=== PATIENT | male | born 1955 | race Caucasian/White ===

== ENCOUNTER 2019-04-15 08:33 | Inpatient (IN) | payer MEDICARE, BC ==
--- NOTE | 2019-04-14 18:30 | Pre-op HX & Phy Repo 2 SIG ---
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 The patient had a 15-year history of ulcerative colitis and underwent surgery in [place] in January 2007 including total colectomy and creation of an ileoanal J pouch. After multiple revisions and dilatations, he underwent surgery for failed J-pouch in June 2008. This included abdominal-perineal proctectomy and conversion of his failed J-pouch to a Hargrove continent ileostomy. The J-pouch itself was utilized and converted into the Hargrove pouch. In September 2008, he required revision for a slipped valve. In February 2009, he underwent resection of his Hargrove pouch because of continued difficulties with intubation and emptying the pouch. The original J-pouch that had been converted to the Hargrove pouch was excised and a new Hargrove continent intestinal reservoir created transposing into the terminal ileum. Since that time, he has done well except for some difficulty with intubating after 03/01/2009 surgery. On 01/24/2010, he underwent laparotomy with reconstruction of the Hargrove pouch valve and revision of the stoma in depth. 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 He has low iron levels and has taken iron supplements. He is scheduled to undergo pouch endoscopy and preparation for surgery for stoma revision. PHYSICAL EXAMINATION: [place] and will be examined upon arrival and dictated separately. IMPRESSION: Stenosis and stricture of Hargrove continent ileostomy stoma. History of ulcerative colitis. STATUS POST MULTIPLE ABDOMINAL OPERATIONS: A) Total colectomy and ileoanal J-pouch with loop ileostomy, January 2007. B) Closure of loop ileostomy, April 2007. C) Multiple dilatations and self-catheterizations per anus 2006 through 2007. D) Revision of the ileoanal anastomosis April 2008 (all the above operations were performed in [place]). E) Conversion of failed ileoanal J-pouch to Hargrove continent ileostomy and abdominal-perineal proctectomy, June 2008. F) Laparotomy with revision of Hargrove pouch slipped valve in September 2008. G) Resection of failed continent ileostomy converted from failed J-pouch with creation of a new Hargrove continent intestinal reservoir in February 2009. H) Laparotomy with reconstruction of Hargrove pouch nipple valve and revision of stoma in depth, 01/24/2010. PLAN: The patient will be admitted and undergo pouch endoscopy not requiring anesthesia or sedation. He will receive a bowel prep with intravenous hydration and have a catheter placed to his Hargrove pouch to continuous gravity drainage. He will then undergo revision of the stoma. I have had a full discussion with the patient, which I will have in person again when he arrives about indications, alternatives, options and risks including bleeding, infection, continued problems with the stoma and so forth. Mehul Roberts M.D. DR: ENID JOB#: [id number] CC:
[~2019-04-15] VITALS: Ht 193 cm; Wt 88.5 kg
--- NOTE | 2019-04-15 11:47 | NUR ---
NURSE NOTES: Patient arrived to 304-1, direct admit of Dr. Roberts, ambulated from [facility]. Alert oriented x4, calm. No distress on RA. No pain, no NV. Oriented patient to room and call light for safety. Home medications reviewed and sent to pharmacy. LLQ dressing CDI. Clear liquid diet as ordered. Will start peripheral line as ordered. Bed in lowest position, will continue to monitor.
[2019-04-15 12:00] VITALS: BP 163/94
[2019-04-15 12:37] LABS: ANION GAP 8 mmol/L (5-15); BLOOD UREA NITROGEN 17 mg/dL (7-18); CALCIUM 9.2 MG/DL (8.5-10.1); CARBON DIOXIDE 25 MMOL/L (21-32); CHLORIDE 107 MMOL/L (98-107); CREATININE 1.2 MG/DL (0.55-1.30); SODIUM 140 MMOL/L (136-145)
[2019-04-15 12:46] LABS: BASOPHILS % (AUTO) 1.9 % (0.0-2.0); EOSINOPHILS % (AUTO) 1.1 % (0.0-3.0); HEMATOCRIT 47.8 % (42.0-52.0); HEMOGLOBIN 15.9 G/DL (14.2-18.0); INR 0.9 (0.9-1.1); LYMPHOCYTES % (AUTO) 21.4 % (20.0-45.0); MEAN CORPUSCULAR VOLUME 91 FL (80-99); MONOCYTES % (AUTO) 6.7 % (1.0-10.0); NEUTROPHILS % (AUTO) 68.9 % (45.0-75.0); PLATELET COUNT 267 K/UL (150-450); RED BLOOD COUNT 5.27 M/UL (4.70-6.10); WHITE BLOOD COUNT 5.6 K/UL (4.8-10.8)
[2019-04-15 12:51] LABS: ALANINE AMINOTRANSFERASE 10 U/L (12-78); ALBUMIN 3.8 G/DL (3.4-5.0); ALBUMIN/GLOBULIN RATIO 1.1 (1.0-2.7); ALKALINE PHOSPHATASE 88 U/L (46-116); ASPARTATE AMINO TRANSFERASE 18 U/L (15-37); BILIRUBIN,TOTAL 0.4 MG/DL (0.2-1.0); FERRITIN 16 NG/ML (8-388)
[2019-04-15] MEDS ORDERED: RANITIDINE HCL150 MG ORAL (12:57)
[2019-04-15] MEDS ORDERED: IMODIUM MULTI-1 EACH PO (12:57)
[2019-04-15] MEDS ORDERED: VSL#3 CAPSULE1 EACH PO (12:57)
[2019-04-15] MEDS ORDERED: GAS-X125 MG PO (12:57)
--- NOTE | 2019-04-15 13:03 | Pre-Procedure Note/Attestation ---
Pre-Procedure Note/Attestation Complete Prior to Procedure Planned Procedure: not applicable Procedure Narrative: Hargrove continent ileostomy pouch endoscopy Indications for Procedure Pre-Operative Diagnosis: Hargrove continent ileostomy stoma stenosis Attestation I attest that I discussed the nature of the procedure; its benefits; risks and complications; and alternatives (and the risks and benefits of such alternatives ), prior to the procedure, with the patient (or the patient's legal field support representative). I attest that, if there was a reasonable possibility of needing a blood transfusion, the patient (or the patient's legal field support representative) was given the [facility] standardized written summary, pursuant to the [place] Blood Safety Act ([place] Health and Safety Code # 1645, as amended). I attest that I re-evaluated the patient just prior to the surgery and that there has been no change in the patient's H&P, except as documented below:none Mehul Roberts MD Apr 15, 2019 13:03
[2019-04-15 13:05] LABS: % IRON SATURATION 11 % (15-50); IRON 38 ug/dL (50-175); TOTAL IRON BINDING CAPACITY 348 ug/dL (250-450)
--- NOTE | 2019-04-15 13:23 | Brief Operative Note ---
Immediate Post Operative Note Operative Note Pre-op Diagnosis: Hargrove continent ileostomy stoma stenosis Procedure: Hargrove pouch endoscopy Post-op Diagnosis: Hargrove pouch stoma stenosis Post-op Diagnosis: same as pre-op Findings: consistent w/pre-op dx studies Surgeon: tanmay Anesthesia: other - none Specimen: none Complications: none Condition: stable Fluids: none Estimated Blood Loss: none Drains: other - 28 Cruz to Hargrove pouch Packing: Fol Implant(s) used?: No Mehul Roberts MD Apr 15, 2019 13:23
[2019-04-15] MEDS ORDERED: Vitamin B12 1000mcg/ml Inj IM ONE (13:30)
--- NOTE | 2019-04-15 13:30 | NUR ---
NURSE NOTES: Patient returned from Endoscopy, via gurney in stable condition, alert, oriented x4 calm. Denies pain. LLQ abdominal dressing CDI, dark green output noted to drainage bag. Will continue to monitor.
--- NOTE | 2019-04-15 14:22 | Anethesia Preoperative Eval ---
Anesthesia Pre-op PMH/ROS General Date of Evaluation: Apr 15, 2019 Time of Evaluation: 16:29 Anesthesiologist: Brianne ASA Score: ASA 2 Mallampati Score Class I : Soft palate, uvula, fauces, pillars visible Class II: Soft palate, uvula, fauces visible Class III: Soft palate, base of uvula visible Class IV: Only hard plate visible Mallampati Classification: Class II Surgeon: Armando Diagnosis: Malfunctioning Hargrove Pouch Stoma Surgical Procedure: Revision of Hargrove Pouch Stoma Anesthesia History: none Family History: no anesthesia problems Allergies: Coded Allergies: No Known Allergies (Verified Allergy, Mild, 06/23/08) Medications: see eMAR Patient NPO?: Yes Past Medical History Cardiovascular: Reports: HTN Hematology/Immune: Reports: DVT PSxH Narrative: A) Total colectomy and ileoanal J-pouch with loop ileostomy, January 2007. B) Closure of loop ileostomy, April 2007. C) Multiple dilatations and self-catheterizations per anus 2006 through 2007. D) Revision of the ileoanal anastomosis April 2008 (all the above operations were performed in [place]). E) Conversion of failed ileoanal J-pouch to Hargrove continent ileostomy and abdominal-perineal proctectomy, June 2008. F) Laparotomy with revision of Hargrove pouch slipped valve in September 2008. G) Resection of failed continent ileostomy converted from failed J-pouch with creation of a new Hargrove continent intestinal reservoir in February 2009. H) Laparotomy with reconstruction of Hargrove pouch nipple valve and revision of stoma in depth, 01/24/2010. Anesthesia Pre-op Phys. Exam Physician Exam Last Vital Signs Date Time Temp Pulse Resp B/P (MAP) Pulse Ox O2 Delivery O2 Flow Rate FiO2 04/15/19 12:00 97.9 70 17 163/94 (117) 97 Constitutional: NAD Neurologic: CN 2-12 intact Cardiovascular: RRR Respiratory: CTA Gastrointestinal: S/NT/ND Airway Exam Mallampati Score: Class II MO: full ROM: full Teeth: missing, intact Anesthesia Pre-op A/P Labs Hematology Test 04/15/19 12:15 White Blood Count 5.6 K/UL (4.8-10.8) Red Blood Count 5.27 M/UL (4.70-6.10) Hemoglobin 15.9 G/DL (14.2-18.0) Hematocrit 47.8 % (42.0-52.0) Mean Corpuscular Volume 91 FL (80-99) Mean Corpuscular Hemoglobin 30.1 PG (27.0-31.0) Mean Corpuscular Hemoglobin Concent 33.1 G/DL (32.0-36.0) Red Cell Distribution Width 14.0 % (11.6-14.8) Platelet Count 267 K/UL (150-450) Mean Platelet Volume 6.3 FL (6.5-10.1) L Neutrophils (%) (Auto) 68.9 % (45.0-75.0) Lymphocytes (%) (Auto) 21.4 % (20.0-45.0) Monocytes (%) (Auto) 6.7 % (1.0-10.0) Eosinophils (%) (Auto) 1.1 % (0.0-3.0) Basophils (%) (Auto) 1.9 % (0.0-2.0) Coagulation Test 04/15/19 12:15 Prothrombin Time 10.0 SEC (9.30-11.50) Prothromb Time International Ratio 0.9 (0.9-1.1) Activated Partial Thromboplast Time 30 SEC (23-33) Chemistry Test 04/15/19 12:15 Sodium Level 140 MMOL/L (136-145) Potassium Level 4.0 MMOL/L (3.5-5.1) Chloride Level 107 MMOL/L (98-107) Carbon Dioxide Level 25 MMOL/L (21-32) Anion Gap 8 mmol/L (5-15) Blood Urea Nitrogen 17 mg/dL (7-18) Creatinine 1.2 MG/DL (0.55-1.30) Estimat Glomerular Filtration Rate > 60 mL/min (>60) Glucose Level 108 MG/DL (74-106) H Calcium Level 9.2 MG/DL (8.5-10.1) Iron Level 38 ug/dL (50-175) L Total Iron Binding Capacity 348 ug/dL (250-450) Percent Iron Saturation 11 % (15-50) L Unsaturated Iron Binding 310 ug/dL (112-346) Ferritin 16 NG/ML (8-388) Total Bilirubin 0.4 MG/DL (0.2-1.0) Aspartate Amino Transf (AST/SGOT) 18 U/L (15-37) Alanine Aminotransferase (ALT/SGPT) 10 U/L (12-78) L Alkaline Phosphatase 88 U/L (46-116) Total Protein 7.4 G/DL (6.4-8.2) Albumin 3.8 G/DL (3.4-5.0) Globulin 3.6 g/dL Albumin/Globulin Ratio 1.1 (1.0-2.7) Vitamin B12 Level 209 PG/ML (193-986) Folate 19.7 NG/ML (8.6-58.9) Risk Assessment & Plan Assessment: ASA 2 Plan: GA Status Change Before Surgery: No Pre-Antibiotics Drug: Barry Canela MD Apr 15, 2019 14:22
--- NOTE | 2019-04-15 14:39 | Diagnostic Imaging Report ---
Indication: Dyspnea Technique: One view of the chest Comparison: 01/23/2010 Findings: Interim removal of previously demonstrated left arm PICC. The lungs and pleural spaces are clear. The heart size is normal Impression: No acute process
[2019-04-15 16:00] VITALS: BP 142/88
[2019-04-15] MEDS ORDERED: Iron Sucrose 200 MG in NS 110 ML IV ONE (16:00)
[2019-04-15] MEDS: D5 1/2NS w/KCl 20mEq 1,000 ML IV SCH (16:58)
--- NOTE | 2019-04-15 17:30 | Procedure Note ---
DATE OF PROCEDURE: 04/15/2019 ENDOSCOPY PROCEDURE REPORT ENDOSCOPIST: Mehul Roberts M.D. ANESTHESIA: None. SEDATION: None. PRE-ENDOSCOPY DIAGNOSES: 1. Malfunctioning Hargrove continent ileostomy with stoma stenosis and stricture. 2. History of ulcerative colitis. 3. Status post multiple operations remotely including proctocolectomy with J-pouch with ultimate resection of J-pouch and creation of [place] continent ileostomy. POST-ENDOSCOPY DIAGNOSES: 1. Malfunctioning Hargrove continent ileostomy with stoma stenosis and stricture. 2. History of ulcerative colitis. 3. Status post multiple operations remotely including proctocolectomy with J-pouch with ultimate resection of J-pouch and creation of Hargrove continent ileostomy. ENDOSCOPY PERFORMED: Hargrove continent ileostomy, pouch endoscopy. FINDINGS: A stenosis of the superficial 1 centimeter of the stoma and the mucocutaneous junction. The pouch and nipple valve were normal. DESCRIPTION OF PROCEDURE: The patient was positioned supine in the GI lab without any anesthesia or sedation given or required. The abdomen is soft and flat with a long midline scar and stoma low in the right lower quadrant. No evidence of abdominal wall hernia. The stomal orifice is quite stenotic and tears when he tries to catheterize with a 30-Salvadorean catheter and causes bleeding. Using a GIF-P140, I was able to manipulate the scope into the stoma and evaluate the entire pouch. There was no sign of inflammation or ulcerations. Retroflexed views revealed a circumferentially well-formed nipple valve. Withdrawal views showed the distance from the stomal orifice to the tip of the valve was approximately 9 centimeters, normal in this patient. Withdrawal views confirmed the above findings. After removing the scope, I was able to insert a 28-Salvadorean Cruz catheter into the pouch and connected to a gravity drainage bag. He will undergo surgery tomorrow. He tolerated the endoscopy well. Mehul Roberts M.D. DR: TIA JOB#: [id number] CC: SULEMAN
--- NOTE | 2019-04-15 19:05 | NUR ---
NURSE NOTES: UA obtained and sent down to lab.
[2019-04-15 19:15] LABS: APPEARANCE,URINE CLEAR; BILIRUBIN, URINE NEGATIVE (NEGATIVE); COLOR,URINE YELLOW; GLUCOSE, URINE (UA) NEGATIVE (NEGATIVE); KETONES,URINE 1+ (NEGATIVE); LEUKOCYTE ESTERASE ,URINE NEGATIVE (NEGATIVE); NITRITE,URINE NEGATIVE (NEGATIVE); PH,URINE 6.5 (4.5-8.0); PROTEIN,URINE 1+ (NEGATIVE); UROBILINOGEN,URINE 1 MG/DL (0.0-1.0)
--- NOTE | 2019-04-15 19:35 | NUR ---
HAND-OFF: Report given to Shahida ANNA. Outputs: Urine: 210 ml Ileostomy: 210 ml
--- NOTE | 2019-04-15 19:36 | NUR ---
NURSE NOTES: Received report from SHOSHANA Rosen. Rounds done with AM RN. Patient alert, oriented x4. Bed in low position, locked, side rails up x2. Call light within reach. Ileo draining well, ileo site dressing dry and intact. Denies pain. Will continue to monitor.
[2019-04-15 20:00] VITALS: BP 149/86
--- NOTE | 2019-04-15 21:45 | Pre-op HX & Phy Repo 2 SIG ---
DATE OF ADMISSION: 04/15/2019 DATE OF SURGERY: Scheduled for surgery on 04/16/2019. HISTORY OF PRESENT ILLNESS: The patient is a 64-year-old male in overall good health with a Hargrove continent ileostomy stoma stenosis and subcutaneous stricture. The patient has a long history starting with a 15-year history of ulcerative colitis and underwent surgery in [place] in January 2007 involving total colectomy with creation of an ileoanal J-pouch. After multiple revisions, he ultimately underwent conversion to a Hargrove continent ileostomy. The [place]. Please see previously dictated history. Additional information the patient gives is that he has felt well and has not had any pouchitis or need for Cipro and Flagyl. His current medications include Imodium two tablets twice a day, the probiotic VSL-3 twice a day, Zantac 150 mg twice a day, and Gas-X twice a day. With this regimen, he has had no pouchitis. PHYSICAL EXAMINATION: GENERAL: He is well developed and well nourished. HEENT: Within normal limits. LUNGS: Clear. HEART: Regular rhythm. BREASTS: Without masses. ABDOMEN: Soft with multiple healed scars including a long midline scar. The stoma of his Hargrove continent ileostomy is low in the right lower quadrant and stenotic barely admitting the 30-Khmer silicon catheter he uses to evacuate stool. This often causes tearing and bleeding. RECTAL: Status post proctectomy. GENITOURINARY: Testes and scrotum within normal limits. EXTREMITIES: No edema. Pulses 3+ femoral to pedal bilaterally. NEUROLOGIC: Physiologic. IMPRESSION: 1. Stenosis and stricture of Hargrove continent ileostomy stoma. 2. History of ulcerative colitis. 3. STATUS POST MULTIPLE ABDOMINAL OPERATIONS: 3.1. Total colectomy and ileoanal J-pouch with loop ileostomy in January 2007. 3.2. Closure of loop ileostomy in April 2007. 3.3. Multiple dilatations and self-catheterizations per anus 2006 through 2007. 3.4. Revision of ileoanal anastomosis in April 2008. All of these procedures were performed in [place]. 3.5. Conversion of failed ileoanal J-pouch to Hargrove continent ileostomy and abdominal-perineal proctectomy in June 2008. 3.6. Laparotomy with revision of Hargrove pouch slipped valve in September 2008. 3.7. Resection of failed continent ileostomy converted from failed J-pouch with creation of a new Hargrove continent intestinal reservoir in February 2009. 3.8. Laparotomy with reconstruction of Hargrove pouch nipple valve and revision of the stoma in depth in January 2010. PLAN: The patient has undergone pouch endoscopy revealing the stenosis of the mucocutaneous junction and about 1 cm deep. The pouch otherwise is normal and there was a well-formed valve. A catheter was placed for continuous gravity drainage and the patient was prepared for surgery of stoma revision. I have had a full discussion with the patient regarding the nature of his condition, the nature of the surgery, indications, alternatives, options, and risks including bleeding, infection, recurrent stenosis, recurrent difficulties with entry into the pouch, etc. All questions have been answered. He understands and agrees to proceed. Mehul Roberts M.D. DR: ENID JOB#: [id number] CC:
[2019-04-15] MEDS: Ampicillin/Sulbactam Sod 3 GM in NS 110 ML IV SCH (23:28)
[2019-04-16] VITALS (13 sets, daily range): BP systolic 118–149; BP diastolic 70–86
[2019-04-16] MEDS: D5 1/2NS w/KCl 20mEq 1,000 ML IV SCH (05:15)
[2019-04-16] MEDS: Ampicillin/Sulbactam Sod 3 GM in NS 110 ML IV SCH ×3 (06:40→18:42)
--- NOTE | 2019-04-16 07:30 | NUR ---
HAND-OFF: Report given to SHOSHANA Rosen. No distress noted.
--- NOTE | 2019-04-16 07:35 | NUR ---
NURSE NOTES: Report received from Shahida ANNA, rounds made. Patient resting in semi-fowlers position, in bed. No distress on RA. Denies pain. IVF (D5 1/2 +20 KCL at 100 ml/hr) infusing to LFA, site asymptomatic. RLQ ileostomy dressing CDI, drainage bag to gravity, dark green output. Voids in urinal. Reinforced NPO status, for OR today. Call light in reach, bed in lowest position, will continue to monitor.
--- NOTE | 2019-04-16 08:31 | Pre-Procedure Note/Attestation ---
Pre-Procedure Note/Attestation Complete Prior to Procedure Planned Procedure: not applicable Procedure Narrative: revision of Hargrove continent ileostomy stoma Indications for Procedure Pre-Operative Diagnosis: Hargrove continent ileostomy stoma stenosis Attestation I attest that I discussed the nature of the procedure; its benefits; risks and complications; and alternatives (and the risks and benefits of such alternatives ), prior to the procedure, with the patient (or the patient's legal parts counter representative). I attest that, if there was a reasonable possibility of needing a blood transfusion, the patient (or the patient's legal parts counter representative) was given the [facility] standardized written summary, pursuant to the [place] Blood Safety Act ([place] Health and Safety Code # 1645, as amended). I attest that I re-evaluated the patient just prior to the surgery and that there has been no change in the patient's H&P, except as documented below:none Mehul Roberts MD Apr 16, 2019 08:31
[2019-04-16] MEDS ORDERED: Bacitracin 50000 Units Vial ONE (09:08)
[2019-04-16] MEDS ORDERED: NeoSporin Gu Irrig 1ml Amp IRRIG ONE (09:08)
[2019-04-16] MEDS ORDERED: fentaNYL 100 mcg/2 mL IV ONE (09:20)
[2019-04-16] MEDS ORDERED: Midazolam 2mg/2ml Inj ONE (09:21)
[2019-04-16] MEDS ORDERED: LR 1000ml ONE (09:30)
[2019-04-16] MEDS ORDERED: Sterile Water Irrig 1000ml IRRIG ONE (09:30)
[2019-04-16] MEDS ORDERED: NS Irrig 1000ml IRRIG ONE ×2 (09:51→10:11)
[2019-04-16] MEDS ORDERED: Iron Sucrose 200 MG in NS 110 ML IV ONE (10:00)
[2019-04-16] MEDS ORDERED: LR 1000ml 1,000 ML IVLG SCH (10:01)
[2019-04-16] MEDS ORDERED: Ketorolac 30mg Inj IV PRN (10:15)
[2019-04-16] MEDS ORDERED: Hydromorphone 0.5mg/0.5ml inj IVP PRN (10:15)
[2019-04-16] MEDS ORDERED: DiphenhydrAMINE 50mg/ml Inj IVP PRN (10:15)
[2019-04-16] MEDS ORDERED: LORazepam 1mg tab SL PRN ×2 (10:30)
[2019-04-16] MEDS ORDERED: HYDROcodone/Acetamin 5/325 tab ORAL PRN (10:30)
--- NOTE | 2019-04-16 10:34 | Brief Operative Note ---
Immediate Post Operative Note Operative Note Pre-op Diagnosis: Hargrove continent ileostomy stoma stenosis Procedure: revision of Hargrove continent ileostomy stoma Post-op Diagnosis: Hargrove pouch stoma stenosis Post-op Diagnosis: same as pre-op Findings: consistent w/pre-op dx studies Surgeon: tanmay Anesthesiologist: syl Anesthesia: general Specimen: yes - stoma stricture Complications: none Condition: stable Fluids: see anesthesia record Estimated Blood Loss: minimal Drains: other - 28 Cruz to Hargrove Pouch Implant(s) used?: No Mehul Roberts MD Apr 16, 2019 10:34
--- NOTE | 2019-04-16 10:34 | Immediate Post-Op Evaluation ---
Immediate Post-Op Evalulation Immediate Post-Op Evalulation Procedure: Revision of continent pouch stoma Date of Evaluation: Apr 16, 2019 Time of Evaluation: 10:33 IV Fluids: 400 Blood Products: none Estimated Blood Loss: min Urinary Output: none Blood Pressure Systolic: 118 Blood Pressure Diastolic: 75 Pulse Rate: 68 Respiratory Rate: 20 O2 Sat by Pulse Oximetry: 98 Temperature (Fahrenheit): 97.6 Pain Score (1-10): 1 Nausea: No Vomiting: No Complications none Patient Status: reacts, patent, none Hydration Status: adequate Ariel Keith MD Apr 16, 2019 10:34
[2019-04-16] MEDS ORDERED: Ampicillin/Sulbactam Sod 3 GM in NS 110 ML IV SCH (12:00)
[2019-04-16] MEDS: D5 1/4NS w/KCl 20mEq 1,000 ML IV SCH ×2 (12:24→23:00)
--- NOTE | 2019-04-16 13:28 | Cardiology Report ---
APPROVED REPORT EKG Measurement Heart [id number] Normal sinus rhythm Incomplete right bundle branch block Borderline ECG
--- NOTE | 2019-04-16 16:13 | NUR ---
CASE MANAGEMENT:REVIEW 04/15/19 64 YR OLD MALE SI: ILEOSTOMY STOMA STENOSIS 97.9 70 17 163/94 97% ON RA IS: GAYTAN POUCH ENDOSCOPY : MED.SURG STATUS 3 [facility] 04/16/19 SI: ILEOSTOMY STOMA STENOSIS 97.4 63 18 125/80 98% ON 3L/NC IS: TO SURGERY FOR: revision of gaytan continent ileostomy stoma : MED/SURG STATUS 3 [facility] INTERQUAL CRITERIA MET
--- NOTE | 2019-04-16 17:30 | NUR ---
NURSE NOTES: Patient sent down to OR at 0855 via bed with IVF (D5 1/2 NS +20 KCL at 100 ml/hr) to LFA in stable condition. Pre-op checklist done. Glasses left at bedside. Voided prior. Ileostomy emptied, see flowsheet for outputs. Verification done with MR# and . Patient returned at 1155 via bed in stable condition on RA. Bilateral SCDs on. Reviewed post op orders, IS use, diet, activity, ileostomy flushes Q3hr/PRN, dressing changes daily/PRN, patient verbalized understanding. Patient remained NPO for lunch. BCIR diet started at dinner, tolerated well, no NV. Noted small shadow drainage to ileostomy dressing, changed at 1540, fresh bloody output, ileostomy catheter intact by suture, and silk tape. Applied 4x4 dry sterile gauze and covered with ABD pad and secured with paper tape. Patient up, voided in urinal without difficulty, then ambulated in halls. Will continue to monitor.
--- NOTE | 2019-04-16 18:46 | Operative Note - Dictated ---
DATE OF OPERATION: 04/16/2019 SURGEON: Mehul Roberts M.D. PILE DRIVING SUPERINTENDENT: None. ANESTHESIOLOGIST: Ariel Keith M.D. TYPE OF ANESTHESIA: General. PREOPERATIVE DIAGNOSES: 1. 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 2. History of ulcerative colitis. 3. Status post multiple abdominal operations. 3.1. Total colectomy and ileoanal J-pouch with loop ileostomy January 2007. 3.2. Closure of loop ileostomy April 2007. 3.3. Revision of ileoanal anastomosis April 2008 3.4. Conversion of failed ileoanal J-pouch to a Hargrove continent ileostomy and abdominal-perineal proctectomy June 2008. 3.5. Laparotomy with revision of Hargrove pouch slipped valve September 2008. 3.6. Resection of failed continent ileostomy converted from failed J-pouch with creation of a new Hargrove continent intestinal reservoir February 2009 3.7. Laparotomy with reconstruction of Hargrove pouch nipple valve and revision of stoma in depth January 2010. POSTOPERATIVE DIAGNOSES: 1. 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 2. History of ulcerative colitis. 3. Status post multiple abdominal operations. 3.1. Total colectomy and ileoanal J-pouch with loop ileostomy January 2007. 3.2. Closure of loop ileostomy April 2007. 3.3. Revision of ileoanal anastomosis April 2008 3.4. Conversion of failed ileoanal J-pouch to a Hargrove continent ileostomy and abdominal-perineal proctectomy June 2008. 3.5. Laparotomy with revision of Hargrove pouch slipped valve September 2008. 3.6. Resection of failed continent ileostomy converted from failed J-pouch with creation of a new Hargrove continent intestinal reservoir February 3.7. Laparotomy with reconstruction of Hargrove pouch nipple valve and revision of stoma in depth January 2010. OPERATION PERFORMED: Revision of Hargrove continent ileostomy stoma stricture. DESCRIPTION OF PROCEDURE: The patient was taken to the operating room and under general anesthesia with sequential compression device stockings in place and having received intravenous antibiotics, he was prepped and draped in usual fashion. The stoma was low in the right lower quadrant. Most of the scarring was medial. A wedge-shaped excision of medial scar tissue was sharply performed, carried circumferentially around the stoma. Using Allis clamps, the edges were gripped and elevated and dissection was proceeded about 1 cm from the prior mucocutaneous junction. There was not very much redundancy of the stoma or access segment because of his prior procedures. Then, I placed a 28-[place] Cruz catheter through the stoma into the pouch. Then, the strictured area and elevated redundancy of the access segment and stoma was excised and the stoma primarily matured with continuous 2-0 chromic locking suture starting at the 3 and 9 o'clock positions. A much wider very satisfactory stoma was achieved with good hemostasis. The 28-[place] Cruz was positioned into the pouch and flushed to confirm its position and sutured to the skin with a 2-0 silk skin suture. It was flushed and connected to a gravity drainage bag. Dry sterile dressing was applied over the stoma. Final sponge and needle counts were correct. The patient tolerated the procedure well, left the operating room in good condition. Mehul Roberts M.D. DR: Terri JOB#: [id number] CC: SULEMAN
[2019-04-16] MEDS: HYDROmorphone 1mg/ml Carpuject SUBQ PRN (19:18)
--- NOTE | 2019-04-16 19:35 | NUR ---
HAND-OFF: Report given to Shahida ANNA.
--- NOTE | 2019-04-16 19:36 | NUR ---
NURSE NOTES: Report received from SHOSHANA Rosen. Rounds done. Patient ambulating in hallway, steady gait, tolerated well. Taking PO well, no nausea, no vomiting. Ileo patent. IV site intact. Will continue to monitor.
--- NOTE | 2019-04-16 20:40 | NUR ---
NURSE NOTES: Ileo site noted with old dry blood, small quantity. Dressing changed. Patient sitting up, doing well. Bed in low position, locked, side rails up x2, call light within reach. Will continue to monitor.
[2019-04-16] MEDS: Zolpidem 5mg tab ORAL PRN (22:06)
[2019-04-16] MEDS ORDERED: Tubing IV Secondary IV ONE (22:22)
[2019-04-17] VITALS: BP 129/76
--- NOTE | 2019-04-17 00:30 | NUR ---
NURSE NOTES: Patient tolerating PO intake well. Will DC IVF per MD order.
[2019-04-17] MEDS: Ampicillin/Sulbactam Sod 3 GM in NS 110 ML IV SCH ×4 (00:45→18:34)
[2019-04-17 04:00] VITALS: BP 122/77
[2019-04-17 05:54] LABS: BASOPHILS % (AUTO) 0.7 % (0.0-2.0); EOSINOPHILS % (AUTO) 0.3 % (0.0-3.0); HEMOGLOBIN 14.8 G/DL (14.2-18.0); LYMPHOCYTES % (AUTO) 13.9 % (20.0-45.0); MEAN CORPUSCULAR VOLUME 91 FL (80-99); MONOCYTES % (AUTO) 7.5 % (1.0-10.0); NEUTROPHILS % (AUTO) 77.7 % (45.0-75.0); PLATELET COUNT 216 K/UL (150-450); RED BLOOD COUNT 4.93 M/UL (4.70-6.10); RED CELL DISTRIBUTION WIDTH 12.7 % (11.6-14.8); WHITE BLOOD COUNT 5.6 K/UL (4.8-10.8)
[2019-04-17 06:16] LABS: ANION GAP 8 mmol/L (5-15); BLOOD UREA NITROGEN 11 mg/dL (7-18); CALCIUM 8.6 MG/DL (8.5-10.1); CARBON DIOXIDE 24 MMOL/L (21-32); CHLORIDE 108 MMOL/L (98-107); CREATININE 1.1 MG/DL (0.55-1.30); POTASSIUM 3.8 MMOL/L (3.5-5.1); SODIUM 140 MMOL/L (136-145)
--- NOTE | 2019-04-17 07:40 | NUR ---
HAND-OFF: Report given to SHOSHANA Euceda. Patient ambulating in hallway, steady gait.
--- NOTE | 2019-04-17 07:45 | NUR ---
NURSE NOTES: Received report from Shahida ANNA. Patient is walking in hallway during rounds, no acute distress noted, with steady gait. Patient reporting no pain. IV intact, asymptomatic. Ileo to gravity drainage. Patient updated on plan of care for the day. Will continue to monitor.
[2019-04-17 08:00] VITALS: BP 129/76
--- NOTE | 2019-04-17 09:05 | General Progress Note ---
Progress Note Progress Note AVSS Comfortable after stoma revision. Abdomen soft Stoma pink Urine 1375 BCIR ileo 2064 Imp; Stable Plan: continue Venofer 200mg daily (he receives iron infusions once a year in recent years continue Unasyn, d/c flagyl and IV fluids maintain continuous drainage of Hargrove Pouch Mehul Roberts MD Apr 17, 2019 09:05
--- NOTE | 2019-04-17 09:18 | 48 Hour Post Anesthesia Eval ---
Post Anesthesia Evaluation Procedure: Revision of continent pouch stoma Date of Evaluation: Apr 17, 2019 Time of Evaluation: 09:17 Blood Pressure Systolic: 128 0: 72 Pulse Rate: 68 Respiratory Rate: 20 Temperature (Fahrenheit): 97.6 O2 Sat by Pulse Oximetry: 97 Airway: patent Nausea: No Vomiting: No Pain Intensity: 2 Hydration Status: adequate Cardiopulmonary Status: stable Mental Status/LOC: patient returned to baseline Follow-up Care/Observations: n/a Post-Anesthesia Complications: none Follow-up care needed: N/A Ariel Keith MD Apr 17, 2019 09:18
[2019-04-17 12:00] VITALS: BP 137/79
[2019-04-17] MEDS ORDERED: NS Irrig 1000ml ONE (15:50)
[2019-04-17] MEDS ORDERED: NS 275ml ONE (15:50)
[2019-04-17 16:00] VITALS: BP 129/81
[2019-04-17] MEDS: HYDROmorphone 1mg/ml Carpuject SUBQ PRN (18:35)
--- NOTE | 2019-04-17 19:00 | NUR ---
NURSE NOTES: Total ileo output for my shift: +670mL Total urine output: 400mL Patent ambulated in hallway several times, tolerated ambulation well, tolerated diet well with no complaints of N/V or emesis. Patient was given breakthrough pain medication twice for peristomal pain, patient reports pain is present only with movement or manipulation of catheter. Pain well managed with breakthrough medication.
--- NOTE | 2019-04-17 19:30 | NUR ---
HAND-OFF: Report given to Corey ANNA. Patient is in stable condition.
[2019-04-17 20:00] VITALS: BP 141/87
[2019-04-17] MEDS ORDERED: Iron Sucrose 200 MG in NS 110 ML IV ONE (21:00)
[2019-04-17] MEDS: Zolpidem 5mg tab ORAL PRN (22:10)
[2019-04-18 00:15] VITALS: BP 132/75
[2019-04-18] MEDS: Ampicillin/Sulbactam Sod 3 GM in NS 110 ML IV SCH ×2 (00:30→06:02)
--- NOTE | 2019-04-18 03:03 | NUR ---
NURSE NOTE: Mr. Rubio is A/Ox4 with stable vitals. Patient does not endorse any complaints. Will continue to monitor.
[2019-04-18 04:05] VITALS: BP 153/89
--- NOTE | 2019-04-18 07:10 | NUR ---
HAND-OFF: Report given to SHOSHANA Euceda.
--- NOTE | 2019-04-18 07:39 | NUR ---
NURSE NOTES: Received report from Corey ANNA. Patient is awake and oriented, no acute distress noted, reporting no pain at this time. Ileo to gravity drainage. IV intact. Patient updated on plan of care for the day. Side rails upx2, bed low and locked, call light in reach. Will continue to monitor.
[2019-04-18 08:00] VITALS: BP 145/89
--- NOTE | 2019-04-18 09:01 | General Progress Note ---
Progress Note Progress Note AVSS Peristomal pain decreased. Tolerating BCIR diet Abdomen soft, Stoma wide open with mild swelling. 30Fr catheter enters readily BCIR ileo 1160 Imp. doing well Plan: Venofer 200mg IV today for total dose 600mg during hospital stay RN supervised BCIR self-intubations today If does well will discharge in AM Instructions/limitations/supplies discussed/provided f/u 04/22 office Mehul Roberts MD Apr 18, 2019 09:01
[2019-04-18] MEDS ORDERED: Iron Sucrose 200 MG in NS 110 ML IV ONE ×2 (11:00→21:00)
[2019-04-18 12:00] VITALS: BP 136/84
--- NOTE | 2019-04-18 12:03 | NUR ---
NURSE NOTES: Patient had successful first self intubation at 1200. No difficulty or pain with self intubation reported by patient, output is green and thin as expected. No bleeding from stoma. 200mL out.
[2019-04-18 16:00] VITALS: BP 135/84
--- NOTE | 2019-04-18 18:30 | NUR ---
NURSE NOTES: Total ileo output for my shift: +750mL Total urine output: 475mL Patient self intubated 3 times with no difficulty reported. No reports of pain with self intubation, no bleeding from stoma.
--- NOTE | 2019-04-18 19:32 | NUR ---
HAND-OFF: Report given to Corey ANNA. Patient is in stable condition.
[2019-04-18 20:00] VITALS: BP 140/88
[2019-04-18] MEDS: Simethicone 80mg tab ORAL SCH (20:27)
[2019-04-18] MEDS: Loperamide 2mg cap ORAL SCH (20:27)
[2019-04-18] MEDS: Zolpidem 5mg tab ORAL PRN (22:01)
[2019-04-19 00:15] VITALS: BP 144/92
[2019-04-19 04:04] VITALS: BP 143/86
--- NOTE | 2019-04-19 04:24 | NUR ---
NURSE NOTE: Mr. Rubio is A/Ox4 with stable vital signs. Pt does not endorse any complaints. Pt is excited for discharge this AM. Will continue to monitor.
[2019-04-19] MEDS: Simethicone 80mg tab ORAL SCH (05:32)
[2019-04-19] MEDS: Loperamide 2mg cap ORAL SCH (05:32)
--- NOTE | 2019-04-19 06:45 | NUR ---
DISCHARGE NOTES: Escorted pt via wheelchair to taxi w/belongings accounted for and discharge summary in hand. Pt in stable condition at time of discharge.
[2019-04-19] MEDS ORDERED: NS Irrig 1000ml ONE (06:49)
[2019-04-19] MEDS ORDERED: NS 275ml ONE (06:49)
[2019-04-19] MEDS ORDERED: Tubing IV Secondary IV ONE (06:49)
--- NOTE | 2019-04-20 12:04 | Discharge Summary ---
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 s/p 04/16/[address] Roberts Revision of Hargrove continent ileostomy stoma stricture. Hospital Course s/p 04/15/19 -pouch endoscopy no sign of inflammation or ulcerations was noted 28-Niuean Cruz catheter w3as inserted into the pouch and connected to a gravity drainage bag tolerated endoscopy well s/p surgery 04/16/19 patient tolerated surgery well 04/17/2019 postop day #1 patient comfortable after stoma revision stoma appeared viable and pink abdomen soft intake and output closely monitored patient was on Venofer (usually receives iron infusion once a year) empiric antibiotic continued/ Unasyn IV fluids and Flagyl discontinued drainage of Hargrove pouch was maintained. 04/18/2019 postop day #2 pain management addressed, pain controlled ambulated tolerated BCIR diet abdomen soft stoma wide open with a mild swelling ; 30-gauge Niuean catheter entered readily intake and output were closely monitored patient received total of 600 mg IV Venofer during hospital stay patient started on RN supervised BCIR self intubation 04/19/2019 patient was able to perform supervised BCIR self-intubation successfully discharge instructions/limitation/supplies discussed/provided follow-up in the office 04/22/2019 FINAL DIAGNOSES 1. 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 2. History of ulcerative colitis. 3. Status post multiple abdominal operations. 3.1. Total colectomy and ileoanal J-pouch with loop ileostomy January 2007. 3.2. Closure of loop ileostomy April 2007. 3.3. Revision of ileoanal anastomosis April 2008 3.4. Conversion of failed ileoanal J-pouch to a Hargrove continent ileostomy and abdominal-perineal proctectomy June 2008. 3.5. Laparotomy with revision of Hargrove pouch slipped valve September 2008. 3.6. Resection of failed continent ileostomy converted from failed J-pouch with creation of a new Hargrove continent intestinal reservoir February 2009. 3.7. Laparotomy with reconstruction of Hargrove pouch nipple valve and revision of stoma in depth January 2010. 4. s/p Hargrove pouch endoscopy 04/15/19 5. s/p Revision of Hargrove continent ileostomy stoma stricture 04/16/19 Discharge Medications Continued Medications: Lact Cmb2/S.thermophl/Bif Cmb1 (Vsl#3 Capsule) 1 Each Capsule 1 EACH PO BID, CAP (This prescription has been renewed) Loperamide Hcl/Simethicone (Imodium Multi-Symptom Rel Cplt) 1 Each Tablet 1 EACH PO BID, TAB (This prescription has been renewed) Ranitidine Hcl* (Zantac*) 150 Mg Tablet 150 MG ORAL TWICE A DAY, TAB (This prescription has been renewed) Simethicone (Gas-X) 125 Mg Capsule 125 MG PO BID, CAP (This prescription has been renewed) Discharge Condition Upon Discharge: stable Discharge Disposition Patient was discharged to Discharge Instructions Discharge Instructions Special Instructions I have been assigned to complete a D/C Summary on this account. I was not involved in the patient management Shelbi Joseph NP Apr 20, 2019 12:04
== END 2019-04-19 06:50 | disposition home or self-care (01) | DRG 349 ==
LOC: 3E 11:30
PROC: 0DJD8ZZ Inspection of Lower Intestinal Tract, Via Natural or Artificial Opening Endoscopic (ICD-10-PCS; principal; 2019-04-15 13:10)
PROC: 0WQFXZ2 Repair Abdominal Wall, Stoma, External Approach (ICD-10-PCS; 2019-04-16)
DX: K94.13 Enterostomy malfunction (principal); Y83.3 Surgical operation with formation of external stoma as the cause of abnormal reaction of the patient, or of later complication, without mention of misadventure at the time of the procedure; Z87.19 Personal history of other diseases of the digestive system; I10 Essential (primary) hypertension; Z86.718 Personal history of other venous thrombosis and embolism
CPT/HCPCS: 36415; 71045; 80048; 80053; 81003; 82607; 82728; 82746; 83540; 83550; 85025; 85610; 85730; 86850; 86900; 86901; 93005; 94003; 94150; J2250